=== PATIENT | female | born 1985 | race Caucasian/White ===

== ENCOUNTER → 2017-12-10 | Outpatient (REF) | payer OTHER ==
[2017-12-10 13:47] LABS: BASO % 0.2 % (0.0-1.0); EOS # 0.1 10^3/uL (0.0-0.50); EOS % 0.6 % (0.0-3.0); HEMATOCRIT 36.3 % (36.0-47.0); HEMOGLOBIN 12.8 g/dl (12.0-15.5); IMMATURE GRANULOCYTE % 0.3 % (0-3.0); LYMPH # 1.9 10^3/uL (1.5-4.5); LYMPH % 18.2 % (24.0-44.0); MEAN CORPUSCULAR HEMOGLOBIN 31.5 pg (27.0-33.0); MEAN CORPUSCULAR HGB CONC 35.3 g/dl (32.0-36.5); MEAN CORPUSCULAR VOLUME 89.4 fl (80.0-96.0); MONO # 0.6 10^3/uL (0.0-0.8); MONO % 5.3 % (0.0-5.0); NEUTROPHILS # 7.8 10^3/uL (1.8-7.7); NEUTROPHILS % 75.4 % (36.0-66.0); PLATELET COUNT, AUTOMATED 216 10^3/uL (150-450); RED BLOOD COUNT 4.06 10^6/uL (4.00-5.40); WHITE BLOOD COUNT 10.4 10^3/uL (4.0-10.0)
[2017-12-10 14:04] LABS: ALBUMIN 3.4 GM/DL (3.2-5.2); ALKALINE PHOSPHATASE 65 U/L (45-117); ALT/SGPT 18 U/L (12-78); ANION GAP 10 MEQ/L (8-16); AST/SGOT 10 U/L (7-37); BILIRUBIN,TOTAL 0.3 MG/DL (0.2-1.0); BLOOD UREA NITROGEN 10 MG/DL (7-18); CALCIUM LEVEL 8.9 MG/DL (8.5-10.1); CARBON DIOXIDE LEVEL 24 MEQ/L (21-32); CHLORIDE LEVEL 104 MEQ/L (98-107); CHOLESTEROL LEVEL 167 MG/DL (<200); CHOLESTEROL RISK RATIO 3.883 (<5); CREATININE FOR GFR 0.57 MG/DL (0.55-1.30); FREE T4 0.92 NG/DL (0.76-1.46); GLOMERULAR FILTRATION RATE > 60.0 (>60); GLUCOSE, FASTING 68 MG/DL (70-100); HDL CHOLESTEROL 43 MG/DL (>40); NON-HDL-C 124 MG/DL; POTASSIUM SERUM 4.3 MEQ/L (3.5-5.1); SODIUM LEVEL 138 MEQ/L (136-145); THYROID STIMULATING HORMONE 0.508 uIU/ML (0.358-3.740); TOTAL PROTEIN 6.8 GM/DL (6.4-8.2); TRIGLYCERIDES LEVEL 275 MG/DL (<150)
[2017-12-10 14:41] LABS: ESTIMATED AVERAGE GLUCOSE 88 MG/DL (60-110); HEMOGLOBIN A1c 4.7 %
== END ==
LOC: M SFHCPLAZ 11:40
DX: R10.32 Left lower quadrant pain (principal); Z13.220 Encounter for screening for lipoid disorders; E66.3 Overweight
CPT/HCPCS: 84443

== ENCOUNTER → 2018-01-11 | Outpatient (CLI) | payer OTHER | LOC: M RAD 15:54 | DX: R10.9 Unspecified abdominal pain (principal); Z3A.17 17 weeks gestation of pregnancy | CPT/HCPCS: 76811 ==

== ENCOUNTER → 2018-01-11 | Outpatient (CLI) | payer OTHER ==
[2018-01-11 18:42] LABS: CONTROL LINE HCG INT CTR LINE PRESENT; HCG, SERUM QUALITATIVE POSITIVE (NEGATIVE)
[2018-01-11 19:09] LABS: HCG, SERUM QUANTITATIVE 18194 MIU/ML
== END ==
LOC: M RAD 17:07
DX: Z36.89 Encounter for other specified antenatal screening (principal); Z3A.17 17 weeks gestation of pregnancy; T83.32XA Displacement of intrauterine contraceptive device, initial encounter; Y84.8 Other medical procedures as the cause of abnormal reaction of the patient, or of later complication, without mention of misadventure at the time of the procedure

== ENCOUNTER → 2018-01-22 | Outpatient (CLI) | payer OTHER ==
[2018-01-22 15:36] LABS: BASO % 0.1 % (0.0-1.0); EOS # 0.1 10^3/uL (0.0-0.50); EOS % 0.6 % (0.0-3.0); HEMOGLOBIN 11.6 g/dl (12.0-15.5); IMMATURE GRANULOCYTE % 0.4 % (0-3.0); LYMPH # 1.8 10^3/uL (1.5-4.5); LYMPH % 20.2 % (24.0-44.0); MEAN CORPUSCULAR HEMOGLOBIN 31.5 pg (27.0-33.0); MEAN CORPUSCULAR HGB CONC 35.2 g/dl (32.0-36.5); MEAN CORPUSCULAR VOLUME 89.7 fl (80.0-96.0); MONO # 0.7 10^3/uL (0.0-0.8); MONO % 7.9 % (0.0-5.0); NEUTROPHILS # 6.3 10^3/uL (1.8-7.7); NEUTROPHILS % 70.8 % (36.0-66.0); PLATELET COUNT, AUTOMATED 189 10^3/uL (150-450); RED BLOOD COUNT 3.68 10^6/uL (4.00-5.40); RED CELL DISTRIBUTION WIDTH 13.3 % (11.5-14.5); WHITE BLOOD COUNT 8.9 10^3/uL (4.0-10.0)
[2018-01-23 00:19] LABS: CHLAMYDIA DNA AMPLIFICATION NEGATIVE (NEGATIVE); GC DNA AMPLIFICATION NEGATIVE (NEGATIVE)
[2018-01-23 11:48] LABS: HEPATITIS C VIRUS ABY INDEX 0.1 INDEX (<0.8)
[2018-01-23 11:48] LABS: HBsAg Prenatal NEGATIVE (NEGATIVE); HIV 1&2 SCREEN CENTAUR NEGATIVE (NEGATIVE); RUBELLA IgG QUALITATIVE IMMUNE (IMMUNE)
== END ==
LOC: M LAB 14:39
DX: Z34.82 Encounter for supervision of other normal pregnancy, second trimester (principal)

== ENCOUNTER → 2018-01-22 | Outpatient (CLI) | payer OTHER | LOC: M RAD 14:44 | DX: Z34.82 Encounter for supervision of other normal pregnancy, second trimester (principal) ==

== ENCOUNTER → 2018-04-01 | Outpatient (CLI) | payer OTHER ==
[~2018-04-01] MED LIST: PRENTAB9 PO
[2018-04-01 13:24] LABS: BASO % 0.2 % (0.0-1.0); EOS % 0.4 % (0.0-3.0); HEMATOCRIT 34.7 % (36.0-47.0); HEMOGLOBIN 11.8 g/dl (12.0-15.5); LYMPH # 1.4 10^3/uL (1.5-4.5); LYMPH % 15.4 % (24.0-44.0); MONO # 0.6 10^3/uL (0.0-0.8); MONO % 6.6 % (0.0-5.0); NEUTROPHILS # 7.2 10^3/uL (1.8-7.7); PLATELET COUNT, AUTOMATED 166 10^3/uL (150-450); RED BLOOD COUNT 3.69 10^6/uL (4.00-5.40); WHITE BLOOD COUNT 9.3 10^3/uL (4.0-10.0)
== END ==
LOC: M SMT 08:21
PROVIDERS: ATTEND Advanced Practice Midwife
DX: Z34.83 Encounter for supervision of other normal pregnancy, third trimester (principal); Z36.89 Encounter for other specified antenatal screening
CPT/HCPCS: 36415; 82950; 85025; 86850; 86900; 86901; J2790

== ENCOUNTER → 2018-04-09 | Outpatient (CLI) | payer OTHER ==
--- NOTE | 2018-04-10 06:45 | REP ---
Clinical: Anatomical evaluation. Comparison: 01/22/2018 . Findings: Examination demonstrates a single live intrauterine in cephalic presentation. motion is identified by technologist. Placenta is noted anterior and grade grade 1 without evidence for placenta previa or abruption. Amniotic fluid volume is normal. Cervix measures 4.2 cm in length and appears closed. An IUD is again identified along the left anterior uterus. No evidence for nuchal cord. Gestational age by LMP 30 weeks 0 days with KIERRA 06/18/2018 . Gestational age by current measurements 30 weeks 2 days with KIERRA 06/16/2018 . FHR equals 127 beats per minute. BPD 7.4 cm 29 weeks 4 days HC 28.1 cm 30 weeks 6 days AC 26.7 cm 30 weeks 6 days FL 5.7 cm 29 weeks 6 days HL 5.2 cm 30 weeks 2 days HC/AC ratio 1.05 Estimated weight 1571 grams ( 52nd percentile). Amniotic fluid index: 11.9 cm (9.0 - 23.4) Umbilical cord SD ratio: 3.58 (2.50 - 3.50). Impression: 1. Single live intrauterine in cephalic presentation demonstrating appropriate interval growth. 2. IUD again identified within the uterus. 3. Umbilical cord SD ratio minimally elevated. Electronically Signed by Mak Hill MD 04/10/2018 06:33 A
== END ==
LOC: M RAD 10:13
PROVIDERS: ATTEND Advanced Practice Midwife
DX: Z36.89 Encounter for other specified antenatal screening (principal); Z3A.30 30 weeks gestation of pregnancy; Z97.5 Presence of (intrauterine) contraceptive device

== ENCOUNTER → 2018-05-09 | Outpatient (REF) | payer OTHER | LOC: M LAB REF 13:02 | PROVIDERS: ATTEND Advanced Practice Midwife | DX: Z34.83 Encounter for supervision of other normal pregnancy, third trimester (principal) ==

== ENCOUNTER → 2018-05-24 | Outpatient (REF) | payer OTHER | LOC: M LAB REF 12:54 | PROVIDERS: ATTEND Advanced Practice Midwife | DX: Z34.83 Encounter for supervision of other normal pregnancy, third trimester (principal); Z3A.00 Weeks of gestation of pregnancy not specified ==

== ENCOUNTER 2018-06-08 22:22 | Inpatient (IN) | payer OTHER ==
[~2018-06-08] VITALS: Ht 165.1 cm; Wt 87.0 kg
[2018-06-08 22:56] VITALS: BP 118/70
[2018-06-08 23:13] VITALS: BP 114/67
[2018-06-08] MEDS ORDERED: METHYLERGONOVINE MALEATE 0.2 MG TAB PO PRN (23:15)
[2018-06-08] MEDS ORDERED: DIBUCAINE 1% OINTMENT 30GM TOP PRN (23:15)
[2018-06-08] MEDS ORDERED: MEASLES,MUMPS,RUBELLA VACCINE INJ (MMR-II) (90707) SC SCH (23:15)
[2018-06-08] MEDS ORDERED: DOCUSATE SODIUM 100 MG CAP PO PRN (23:15)
[2018-06-08] MEDS ORDERED: ACETAMINOPHEN 500 MG TAB PO PRN (23:15)
[2018-06-08] MEDS ORDERED: PROMETHAZINE 25 MG TAB PO PRN (23:15)
[2018-06-08] MEDS ORDERED: RHOGAM 300 MCG (1500 IU) INJ (J2790) IM SCH (23:15)
[2018-06-08] MEDS ORDERED: LIDOCAINE 1% MDV 20ML VIAL INFIL ONE (23:15)
[2018-06-08 23:26] VITALS: BP 127/66
[2018-06-08 23:27] LABS: HEMATOCRIT 32.3 % (36.0-47.0); MEAN CORPUSCULAR HEMOGLOBIN 30.6 pg (27.0-33.0); MEAN CORPUSCULAR HGB CONC 34.1 g/dl (32.0-36.5); MEAN CORPUSCULAR VOLUME 89.7 fl (80.0-96.0); PLATELET COUNT, AUTOMATED 154 10^3/uL (150-450); WHITE BLOOD COUNT 11.6 10^3/uL (4.0-10.0)
[2018-06-08 23:41] VITALS: BP 127/75
[2018-06-08 23:56] VITALS: BP 120/64
[2018-06-09 01:00] VITALS: BP 128/72
[2018-06-09 06:00] VITALS: BP 119/68
--- NOTE | 2018-06-09 06:48 | HPE ---
DATE OF ADMISSION: 06/08/2018 32-year-old 2, para 1 female at 38-4/7 weeks gestation by 19 week ultrasound, estimated date of confinement (EDC) of 06/18/2018, presents after vaginal delivery at home. The patient started with contraction around 8:30 p.m. and the contractions increased in intensity. She had a rapid delivery of a viable female a home. Placenta also delivered. She called the ambulance and came into the hospital. COURSE: The patient initiated care at 20 weeks gestation, 02/01/2018. Her blood pressure at that time was 118/72. significant for a retained intrauterine device (IUD) which is though to be embedded in the muscularis of the uterus. OBSTETRICAL HISTORY: 1. July 2016, 37 week vaginal delivery of a 5 pound 4 ounce female infant. She was induced due to intrauterine growth restriction (IUGR). MEDICAL HISTORY: None. SURGICAL HISTORY: None. ALLERGIES: None. SOCIAL HISTORY: The patient lives in [place]. She is . Her partner is in the . She denies cigarettes, alcohol or drug use. FAMILY HISTORY: Noncontributory. PHYSICAL EXAMINATION: Blood pressure 124/74, pulse 84. She is in no apparent distress. Head and neck exam normal. Lungs clear. Heart regular rate and rhythm. Abdomen nontender, gravid. Sterile vaginal exam second degree vaginal laceration with moderate amount of bleeding. The uterine fundus is firm. Extremities nontender. LABS: Blood type is A negative. Rubella immune. RPR nonreactive. Hepatitis B and C negative. Group B Streptococcus (GBS) negative. ASSESSMENT: 32 you gravid 2, para 2 female status post precipitous vaginal delivery at home who presents for post care. PLAN: Admit for surveillance of mother and baby. Will plan vaginal repair under local anesthesia.
[2018-06-09] MEDS: PRENATAL VITAMINS CHEWABLE TABLET PO SCH (07:29)
[2018-06-09] MEDS: IBUPROFEN 800 MG TAB PO PRN ×2 (07:30→16:49)
[2018-06-09 18:00] VITALS: BP 125/68
[2018-06-10] MEDS: IBUPROFEN 800 MG TAB PO PRN (05:26)
[2018-06-10 06:39] VITALS: BP 107/64
[2018-06-10] MEDS ORDERED: MAPA500T2 PO (08:25)
[2018-06-10] MEDS ORDERED: IBUP-1114 PO (08:25)
[2018-06-10] MEDS: PRENATAL VITAMINS CHEWABLE TABLET PO SCH (09:00)
--- NOTE | 2018-06-10 18:08 | DN ---
DATE OF DELIVERY: 06/08/2018 PREDELIVERY DIAGNOSIS: 38 weeks post-vaginal delivery at home. POSTDELIVERY DIAGNOSIS: 38 weeks post-vaginal delivery at home. PROCEDURE: Repair of obstetrical laceration. RODDING ANODE WORKER: Dr. Rolly Kaur ANESTHESIA: Local. ESTIMATED BLOOD LOSS: 200 mL. FINDINGS: The patient presented to the labor floor after having spontaneous vaginal delivery at home of a viable female , 7 pounds 13 ounces. She also had delivery of the placenta at home as well. The patient presented by ambulance. On arrival to the labor and delivery floor, the patient was examined and noted to be in stable condition. She had control of bleeding. On further inspection, a second degree perineal laceration was noted and was bleeding mildly. The area was injected with 10 mL of 1% lidocaine. The repair was performed with 2-0 chromic in the usual fashion. Sponge and needle counts were correct. The placenta was inspected and appeared to be intact. There was no sign of an intrauterine device (IUD) which had been retained at the time of .
== END 2018-06-10 14:30 | disposition home or self-care (01) | DRG 769 ==
LOC: M LDI 22:22 → M OBS 06-09 01:05
PROVIDERS: ADMIT Specialist; ATTEND Specialist
PROC: 0KQM0ZZ Repair Perineum Muscle, Open Approach (ICD-10-PCS; principal; 2018-06-08)
DX: O70.1 Second degree perineal laceration during delivery (principal); Z3A.38 38 weeks gestation of pregnancy